=== PATIENT | female | born 1940 | race Caucasian/White ===

== ENCOUNTER → 2016-09-21 | Outpatient (CLI) | payer OTHER, BC ==
[~2016-09-21] MED LIST: BIOT1TAB5 PO; CHOL100010 PO; DILT120T8 PO; FEXO1TAB49 PO; KETO0.0216 OP; LSN10 PO; MONT1TAB3 PO; MULTCAP98 PO; PRM/45 PO; SERT50TA PO
[2016-09-21 08:28] LABS: HEMATOCRIT 40.4 % (37-47); MEAN CELL VOLUME 90.8 fL (80-100); MEAN CORPUSCULAR HEMOGLOBIN 30.3 pg (25-34); MEAN CORPUSCULAR HGB CONC 33.4 g/dl (32-36); MEAN PLATELET VOLUME 10.5 fL (7.4-10.4); PLATELET COUNT 320 K/uL (130-400); RED BLOOD COUNT 4.45 M/uL (4.2-5.4); WHITE BLOOD COUNT 6.32 K/uL (4.8-10.8)
[2016-09-21 08:35] LABS: BLOOD UREA NITROGEN 13 mg/dl (7-18); BUN/CREATININE RATIO 15.1 (10-20); CALCIUM 8.7 mg/dl (8.5-10.1); CARBON DIOXIDE 24 mmol/L (21-32); CHLORIDE 105 mmol/L (98-107); CREATININE 0.85 mg/dl (0.60-1.20); GLUCOSE 97 mg/dl (70-99); POTASSIUM 4.2 mmol/L (3.5-5.1); SODIUM 140 mmol/L (136-145)
== END ==
LOC: C.LABFOXMH 08:16
PROVIDERS: ATTEND Internal Medicine
DX: I10 Essential (primary) hypertension (principal)

== ENCOUNTER → 2017-04-30 | Outpatient (CLI) | payer OTHER, BC ==
--- NOTE | 2017-04-30 15:52 | MAMMOGRAPHY REPORT ---
BILATERAL DIGITAL SCREENING MAMMOGRAM WITH CAD: 04/30/2017 CLINICAL HISTORY: Routine screening. Patient has no complaints. TECHNIQUE: Bilateral CC and MLO views were obtained. Current study was also evaluated with a Compute r Aided Detection (CAD) system. COMPARISON: Comparison is made to exams dated: 04/17/2016 mammogram, 04/12/2015 mammogram, 04/06/2014 m ammogram, 04/04/2013 mammogram, 03/29/2012 mammogram, and 03/29/2011 mammogram - [facility] enter. BREAST COMPOSITION: There are scattered areas of fibroglandular density in both breasts. FINDINGS: The parenchymal pattern is unchanged. No developing mass, architectural distortion or clus ter of suspicious microcalcifications is seen in either breast. IMPRESSION: ACR BI-RADS CATEGORY 2: BENIGN There is no mammographic evidence of malignancy. A 1 year screening mammogram is recommended. The pa tient will receive written notification of the results. Approximately 10% of breast cancers are not detected with mammography. A negative mammographic report should not delay biopsy if a clinically suggestive mass is present. Babita Jaime M.D. ay/:04/30/2017 15:06:50 Weatherization Specialist: Gloria CAMERON(Angela)(Stephanie)(BD), [facility] letter sent: Normal 1/2 BI-RADS Code: ACR BI-RADS Category 2: Benign
== END ==
LOC: C.MAMM 11:02
PROVIDERS: ATTEND Internal Medicine
DX: Z12.31 Encounter for screening mammogram for malignant neoplasm of breast (principal)

== ENCOUNTER 2024-10-21 10:37 | Observation (INO) ==
--- NOTE | 2024-09-24 14:26 | PAT Medication Instructions ---
Medication Instructions Date of Service September 24, 2024 Home Medications conjugated estrogens 0.45 mg tablet (Premarin) 0.45 mg PO QAM diltiazem HCl 180 mg capsule,extended release 24 hr 180 mg PO QAM fexofenadine 180 mg tablet (Selene Allergy) 180 mg PO QAM levothyroxine 25 mcg tablet (Synthroid) 25 mcg PO QAM spironolactone 25 mg tablet 25 mg PO QAM acetaminophen 650 mg tablet 650 mg PO QAM candesartan 32 mg tablet 32 mg PO QAM cholecalciferol (vitamin D3) 50 mcg (2,000 unit) tablet (Vitamin D3) 50 mcg PO QAM desonide 0.05 % lotion 1 applic topical DAILY sertraline 50 mg tablet 75 mg PO QAM vitamin A-vitamin C-vit E-min tablet 1 tab PO QAM ASK your prescriber and surgeon conjugated estrogens 0.45 mg tablet (Premarin) 0.45 mg PO QAM STOP taking 2 weeks before surgery vitamin A-vitamin C-vit E-min tablet 1 tab PO QAM STOP taking 24 hours before surgery desonide 0.05 % lotion 1 applic topical DAILY DO NOT take the morning of surgery fexofenadine 180 mg tablet (Selene Allergy) 180 mg PO QAM spironolactone 25 mg tablet 25 mg PO QAM candesartan 32 mg tablet 32 mg PO QAM cholecalciferol (vitamin D3) 50 mcg (2,000 unit) tablet (Vitamin D3) 50 mcg PO QAM Take morning of surgery With a small sip of water, OTHERWISE NOTHING TO EAT OR DRINK AFTER MIDNIGHT: diltiazem HCl 180 mg capsule,extended release 24 hr 180 mg PO QAM levothyroxine 25 mcg tablet (Synthroid) 25 mcg PO QAM acetaminophen 650 mg tablet 650 mg PO QAM sertraline 50 mg tablet 75 mg PO QAM Other Notes If you have any questions please call us at [phone] or [phone] or [phone] or [phone]
--- NOTE | 2024-10-10 14:09 | Anesthesiology Consultation ---
Date of Service October 10, 2024 Assessment & Plan (1) Encounter for pre-operative examination: - will request most recent note from Dr. Laura and then will discuss with anesthesiologist if anything additional is needed. - Outpatient joint assessment: Patient is currently scheduled for inpatient pathway. If re-evaluated and patient/surgeon requests outpatient pathway, patient is not a candidate for outpatient joint program from anesthesia standpoint. Chart Review Chart Review: Pending: Refer to Additional Notes / Consult section and Patient seen in Pre Admission Testing Teaching & Discussion Pre-Anesthesia Teaching/Discussion Notes: Instructed NPO after midnight before surgery, except medications with 15 cc of water. Medication instructions provided according to the PAT guidelines. History Surgery Operation Date: 10/21/24 08:50 Proposed Procedures p Right Total Knee Arthroplasty - Ramakrishna Edge MD Height/Weight Height: 5 ft 3 in Weight: 72.5 kg Allergies Allergy/AdvReac Type Severity Reaction Status Date / Time latex Allergy Intermediate Itching Verified 09/24/24 13:14 pollen extracts Allergy Mild Itching/Watery Verified 09/24/24 13:14 Eyes, Congestion Medications Home Medications Medication Instructions Recorded Confirmed Last Taken conjugated estrogens 0.45 mg 0.45 mg PO QAM 10/02/22 09/24/24 Unknown tablet (Premarin) diltiazem HCl 180 mg 180 mg PO QAM 10/02/22 09/24/24 Unknown capsule,extended release 24 hr fexofenadine 180 mg tablet 180 mg PO QAM 10/02/22 09/24/24 Unknown (Selene Allergy) levothyroxine 25 mcg tablet 25 mcg PO QAM 10/02/22 09/24/24 Unknown (Synthroid) spironolactone 25 mg tablet 25 mg PO QAM 10/02/22 09/24/24 Unknown acetaminophen 650 mg tablet 650 mg PO QAM 09/24/24 09/24/24 Unknown candesartan 32 mg tablet 32 mg PO QAM 09/24/24 09/24/24 Unknown cholecalciferol (vitamin D3) 50 50 mcg PO QAM 09/24/24 09/24/24 Unknown mcg (2,000 unit) tablet (Vitamin D3) desonide 0.05 % lotion 1 applic topical DAILY 09/24/24 09/24/24 Unknown sertraline 50 mg tablet 75 mg PO QAM 09/24/24 09/24/24 Unknown vitamin A-vitamin C-vit E-min 1 tab PO QAM 09/24/24 09/24/24 Unknown tablet Past Medical History Medical History (Updated 10/10/24 @ 14:16 by Renetta Buitrago PA-C) CAD (coronary artery disease) No stents - no longer follows with Cardio / PCP [facility] monitors Hearing loss Bilateral Hearing Aids HTN (hypertension) controlled, stable per pt Hx of non-ST elevation myocardial infarction (NSTEMI) (~2005) Hypothyroidism Osteoarthritis PONV (postoperative nausea and vomiting) denies needing scop patch Prediabetes Hgb A1C 6.3 on 09/01/24 Patient denies h/o stroke, seizures, heart failure, blood clots/DVTs or blood transfusions. Exercise / Class Metabolic Activity III < 4 Walking/Shop/Light housework (denies chest discomfort or shortness of breath with usual activities) Past Surgical History Surgical History (Updated 10/10/24 @ 14:18 by Renetta Buitrago PA-C) History of bilateral oophorectomy (~1999) Hx of angioplasty 2005 - [facility] [place] - no longer follows with Cardio / PCP [facility] monitors Hx of bilateral cataract extraction Hx of cholecystectomy (1995) Hx of colonoscopy 10/02/24 Hx of hysterectomy (~1978) Past Anesthesia History No Hx of Anesthesia Complications and No Family Hx of Anesthesia Complications History of PONV No Hx of Motion Sickness and History of PONV (denies needing scop patch) Social History Smoking Status: Never smoker Do You Dip or Chew Tobacco: No Hx Alcohol Use: Yes alcohol intake frequency: holidays/special occasions only Hx Substance Use: No substance use type: does not use Review of Systems Occasional snoring, denies witnessed apneas. Patient denies chest pain, shortness of breath, dyspnea on exertion, reflux, fever, chills, cough, wheezing, or palpitations. Physical Exam Vital Signs Vitals BP 121/64 P 68 TEMP 98.5 SP02 98% on RA RESP 19 Physical Patient resting comfortably in chair in no acute distress, alert and oriented, responding appropriately throughout visit Full cervical extension range of motion without pain TMD < 3 finger breadths Mallampati Score 2 Dentition: four implants; denies chipped or loose teeth, caps/crowns, or bridges Lungs: normal respiratory effort. Good air movement, clear throughout to auscultation, no adventitious breath sounds Cardiac: regular rate and rhythm, no murmurs noted Carotid arteries: negative bruit bilat Lab Results Anesthesia Preop Results Results Anesthesia Widget: WBC 7.05 K/ul (4.8-10.8) 10/01/24 Hgb 12.7 g/dl (12.0-16.0) 10/01/24 Hct 39.6 % (37.0-47.0) 10/01/24 Plt 272 K/uL (130-400) 10/01/24 Na 133 mmol/L (136-145) L 10/10/24 K 4.4 mmol/L (3.5-5.1) 10/10/24 Cl 105 mmol/L (98-107) 10/10/24 CO2 25 mmol/L (21-32) 10/10/24 BUN 29 mg/dl (6-23) H 10/10/24 Creat 0.94 mg/dl (0.6-1.2) 10/10/24 Glucose Level 114 mg/dl (70-99(Fasting)) H 10/10/24 PT 10.4 Seconds (9.0-12.0) 10/10/24 PTT 26 Seconds (21-31) 10/10/24 INR 1.0 (0.9-1.1) 10/10/24 TSH 2.790 uIu/ml (0.300-4.500) 09/01/24 HA1c 6.3 % (4.5-5.6) H 09/01/24 SARS-CoV-2 RNA (RT-PCR) Negative (Negative) 09/30/24 Blood Type O Negative 10/10/24 Antibody Screen NEGATIVE 10/10/24 Testing Electrocardiogram Date: 10/10/24 NSR, rate 63 bpm Left axis deviation Possible inferior infarct, age undetermined Chest X-Ray Date: 10/10/24 No acute cardiopulmonary disease.
[~2024-10-21 10:37] MED LIST changes: -BIOT1TAB5 PO; +BUPIVACAINE 0.5 % 5 MG/1 ML PF 10ML VIAL ONE; -CHOL100010 PO; -DILT120T8 PO; -FEXO1TAB49 PO; -KETO0.0216 OP; -LSN10 PO; -MONT1TAB3 PO; -MULTCAP98 PO; -PRM/45 PO; +ROPIVACAINE 0.5% 5 MG/ML 30 ML VIAL ONE; -SERT50TA PO
--- NOTE | 2024-10-21 11:10 | History & Physical Bridge Note ---
Date of Service October 21, 2024 History & Physical Bridge Note I have examined the patient, reviewed the History & Physical and in the interval since the performance of the History & Physical I have noted the following changes of clinical significance: no changes noted
[2024-10-21] MEDS: LR 60ML/HR IV SCH (11:39)
[2024-10-21] MEDS: METOCLOPRAMIDE HCL 10 MG TABLET PO SCH (11:40)
[2024-10-21] MEDS: LR 500ML BOLUS, THEN 15ML/HR IV SCH (11:40)
[2024-10-21] MEDS: CeleBREX 200 MG CAP PO SCH (11:40)
[2024-10-21] MEDS: FAMOTIDINE 20 MG TAB PO SCH (11:40)
[2024-10-21] MEDS: ACETAMINOPHEN 500 MG TAB PO SCH ×2 (11:40→21:46)
[2024-10-21] MEDS: dexAMETHasone**PF** 10 MG/ML VIAL IV SCH (11:41)
[2024-10-21] MEDS ORDERED: fentaNYL citrate PF 100 MCG/2 ML VIAL ONE (12:31)
[2024-10-21] MEDS ORDERED: MIDAZOLAM HCL 1 MG/ML 2ML VIAL ONE (12:31)
[2024-10-21] MEDS ORDERED: PROPOFOL IV EMULSION 10 MG/ML 20 ML VIAL IV ONE (12:34)
[2024-10-21] MEDS: ceFAZolin 2000MG 2,000 MG/15 ML SYR IV SCH (12:58)
[2024-10-21] MEDS ORDERED: LIDOCAINE 2% 2 ML VIAL/AMP(20MG/ML) INFIL ONE (13:07)
[2024-10-21] MEDS ORDERED: ePHEDrine sulfate 50 MG/ML AMP ONE (13:08)
[2024-10-21] MEDS: ORTHO JOINT ANESTHETIC ONE (13:29)
[2024-10-21] MEDS: TRANEXAMIC ACID 1,000 MG **IV Intra-op IV SCH (13:43)
[2024-10-21] MEDS: ROPIV 0.5% 246mg, Ketorolac 30mg, EPINEPHrine 0.5mg in NSS INFIL SCH (13:44)
[2024-10-21] MEDS ORDERED: ePHEDrine sulfate 50 MG/ML AMP IV PRN (13:46)
[2024-10-21] MEDS ORDERED: PROMETHAZINE HCL 6.25 MG in SODIUM CHLORIDE 0.9% 50 ML IV PRN (13:46)
[2024-10-21] MEDS ORDERED: ONDANSETRON INJ 2 MG/ML 2 ML VIAL IV PRN ×2 (13:46→16:06)
[2024-10-21] MEDS ORDERED: fentaNYL citrate PF 100 MCG/2 ML VIAL IV PRN (13:46)
[2024-10-21] MEDS ORDERED: ATROPINE SULFATE 0.1 MG/ML 10ML SYR IV PRN (13:46)
[2024-10-21] MEDS ORDERED: HYDROmorphone INJ 2 MG/ML SYR/VIAL IV PRN (13:46)
--- NOTE | 2024-10-21 14:43 | Operative Report ---
PG Post Operative Report Pre & Post Diagnosis Operation Date: 10/21/24 12:30 Pre-Op Diagnosis: Right Knee Osteoarthritis Post-Op Diagnosis: Right Knee Osteoarthritis I identified the patient and participated in the time-out.: Yes Procedure Operation Date: 10/21/24 12:30 Actual Procedures p Right Total Knee Arthroplasty(Right) - Ramakrishna Edge MD Surgeon Ramakrishna Edge MD Roll Table Operator MONSTER Moeller Estimated Blood Loss 50 Findings Consistent with Post-Op Diagnosis Specimens Right knee sent for pathology. Anesthesia Type Spinal MAC Complications none Disposition Accompanied Patient To Recovery: No Indications Patient is an 9-year-old female whose had a several year history of increasing right knee pain discomfort deformity. She been through extensive conservative treatment which became less successful over time. She became more debilitated by her pain and dysfunction. That she discussed this with her primary care doctor and now she elected proceed with total knee arthroplasty. Description of Procedure Operative implants consist of: 1. Biomet Vanguard size 62.5 right posterior stabilized femoral component. 2. Biomet size 63 tibial tray. 3. 10 mm posterior stabilized polyethylene insert. 4. 28 x 8 all poly patella. The patient was taken the op room, identified, placed on the operating table in the supine position. All conductors were appropriately padded. IV antibiotics provided by the anesthesia team. A spinal anesthetic and adductor canal block had been provided in the holding area. A Hernandez catheter was placed in sterile fashion. Right Tetrick was then placed. Right lower extremity was then prepped and draped in usual sterile fashion. The right leg was elevated and exsanguinated with use of an Esmarch and a turn was placed at 300 mmHg. An anterior approach to the right knee was then performed to longitudinal incision centered over the patella. Sharp dissection was got through subcutaneous tissue down the extensor mechanism. A medial par apatellar arthrotomy incision was made. Some subperiosteal dissection was carried out medially. The fat pad was dissected from Neath patella tendon. Lateral patellofemoral ligament was released. Patella subluxate laterally knee was flexed. The osteophytes taken off distal femur. The ACL and PCL were then released and the distal femur and the tibia subluxated anteriorly. The external tibial alignment jig was then placed on the anterior face the tibia and adjusted 12 mm medially. The proximal tibial cut was made remove that 3 to 4 mm of bone from the medial side. Tibia sized at a size 63. Tissue was then drawn to the femur. The distal femur tendon with a sharp drill. Intramedullary canal was suction. A right 5 degree valgus cutting guide was placed. This femoral cutting block w as pinned in place. This femoral cut was made to take an additional 3 mm of bone off distal femur. The knee was brought down to extension. I did release the IT band or equalize extension gap. The knee was flexed. The the femur was then sized to a size 62.5. The AP cutting block was pinned parallel to the epicondylar axis which was 4 degrees of external rotation. The anterior cut, anterior chamfer, posterior cut, posterior chamfer cuts were made through the box cutting guide was placed and just slight lateral box cut was made. The knee was flexed. The remnants of the medial and lateral menisci were excised. The osteophytes taken off the posterior aspect the femur. A trial femoral component was placed. Tibial tray was pinned Soco external rotation and the drill and stem point to use great defect in proximal tibia for the tibial tray. Knee was then trialed and the 10 mm insert fit most appropriately. Attention drawn the patella. The patella was cleaned of all soft tissues. Patella thickness measured 21 mm in thickness was cut down to 13. Sized to a size 28 patella. The lug holes were drilled for the 28 patella. The lateral osteophytes removed. Patella button was placed. Knee was taken through range of motion patella tracked nicely with no thumbs test. Attention then drawn to placement permanent components. Nupathe all trial components were removed. Bone plug was placed into this femur limit blood loss. A double batch Palacos G cement was mixed. Biomet Vanguard size 62.5 right posterior Byce femoral component, size 63 tibial tray, a 10 mm posterior Byce polyethylene insert, and a 28 x 8 all poly patella then cemented in place. The knee was brought out in full extension till cement hardened. Final cement check was then performed. Pericapsular tissues were injected with total 100 cc of Ortho mix. Patient did receive 1 g tranexamic acid. The tourniquet was then let down for final tourniquet time of 51 minutes. Hemostasis assured use electrocautery. Extensor Meclomen then closed with combination 1 PDS suture #1 Vicryl suture in a [id number] fashion. Extensor Meclomen checked found to be intact with subcutaneous tissues then closed with 2 Dexon suture in a buried interrupted fashion skin was closed skin carine. Leg was then cleaned and dried a sterile dressing with Xeroform, 4 fours, sterile cast padding, Dm bandage were applied. Patient then transferred to the recovery in stable condition. Patient tolerated procedure well and there were no complications. Omar Moeller, my physician curriculum assistant, was present for the entire procedure. His assistance was essential and required for appropriate patient positioning, prepping and draping, surgical exposure, performing the technical details of the operation, placement the implants, closure of the wound, and placement of the sterile bandage. I attest to the content of the Intraoperative Record and any orders documented therein. Any exceptions are noted below.
--- NOTE | 2024-10-21 15:03 | XRay Report ---
XR knee RT 1 or 2V routine CLINICAL HISTORY: Surgical Post Op COMPARISON: None FINDINGS: Right knee prosthesis shows no hardware complication. There is expected soft tissue gas. S kin carine are present. IMPRESSION: Unremarkable postoperative exam. ACT 112: Negative or not required by law. Electronically signed by: Davey Rodriguez M.D. 10/21/2024 3:01 PM
[2024-10-21] MEDS ORDERED: ALUMINUM/MAGNESIUM SUSP 30 ML UDC PO PRN (16:06)
[2024-10-21] MEDS ORDERED: oxyCODONE HCL IR 5 MG TAB (IMMEDIATE RELEASE) PO PRN (16:06)
[2024-10-21] MEDS ORDERED: NALOXONE HCL 0.4 MG/1 ML VIAL/CARP IV PRN (16:06)
[2024-10-21] MEDS ORDERED: HYDROmorphone INJ 0.5 MG/0.5 ML SYR IV PRN (16:06)
[2024-10-21] MEDS ORDERED: bisacodyL 10 MG SUPP PR PRN (16:06)
[2024-10-21] MEDS ORDERED: MAGNESIUM HYDROXIDE SUSP 30 ML UDC PO PRN (16:06)
[2024-10-21] MEDS ORDERED: METOCLOPRAMIDE HCL INJ 5 MG/ML 2 ML VIAL IV PRN (16:06)
[2024-10-21] MEDS: ASCORBIC ACID 500 MG TAB PO SCH (16:51)
[2024-10-21] MEDS: KETOROLAC TROMETHAMINE 15 MG/ML VIAL IV SCH (16:53)
[2024-10-21] MEDS ORDERED: SENNA 8.6 MG TAB PO SCH (21:00)
[2024-10-21] MEDS: TRANEXAMIC ACID / 0.7% NACL 1,000 MG/100 ML BAG IV SCH (21:46)
[2024-10-21] MEDS: SENNA 8.6 MG TAB PO SCH (21:46)
[2024-10-21] MEDS: DOCUSATE SODIUM 100 MG CAP PO SCH (21:46)
[2024-10-21] MEDS: ceFAZolin 1000MG 1,000 MG/7.5 ML SYR IV SCH (21:46)
[2024-10-21] MEDS: ASPIRIN 81 MG ECTAB PO SCH (21:47)
[2024-10-22] MEDS: LEVOTHYROXINE SODIUM 25 MCG TABLET PO SCH (05:47)
[2024-10-22] MEDS: TRIAMCINOLONE ACET 0.025% CR 15 GM TUBE TOP SCH (06:45)
[2024-10-22 07:22] LABS: Hematocrit (blood only) 30.6 % (37.0-47.0); Hemoglobin 10.1 g/dl (12.0-16.0); Mean Corpuscular Hemoglobin 29.8 pg (25.0-34.0); Mean Corpuscular Volume 90.3 fL (80.0-100.0); Mean Platelet Volume 10.1 fL (9.4-12.4); Platelet Count 280 K/uL (130-400); RDW Coefficient of Variation 12.1 % (11.5-14.5); RDW Standard Deviation 39.8 fL (36.4-46.3); Red Blood Count 3.39 M/uL (4.20-5.40); White Blood Count 13.63 K/ul (4.8-10.8)
[2024-10-22 07:43] LABS: BUN Creatinine Ratio 26.5 (10-20); Creatinine Clr Calc Pharmacy 35.3 ml/min; Potassium 4.7 mmol/L (3.5-5.1)
[2024-10-22] MEDS: SPIRONOLACTONE 25 MG TAB PO SCH (08:06)
[2024-10-22] MEDS: LOSARTAN POTASSIUM 50 MG TAB PO SCH (08:06)
[2024-10-22] MEDS: SERTRALINE HCL 50 MG TABLET PO SCH (08:08)
[2024-10-22] MEDS: MULTIVITAMIN TAB PO SCH (08:08)
[2024-10-22] MEDS: CEROVITE ADV FORMULA TAB PO SCH (08:08)
[2024-10-22] MEDS: FEXOFENADINE HCL 180 MG TAB PO SCH (08:08)
[2024-10-22] MEDS: CHOLECALCIFEROL 25 MCG (1000 UNITS) TAB PO SCH (08:08)
[2024-10-22] MEDS: dilTIAZem HCL 180 MG CAPCR PO SCH (08:08)
[2024-10-22] MEDS: dexAMETHasone 10 MG in SYRINGE 0 ML IV SCH (08:14)
--- NOTE | 2024-10-22 11:38 | Orthopedic Progress Note ---
Date of Service October 22, 2024 Assessment & Plan (1) Status post total right knee replacement: (2) Aftercare following right knee joint replacement surgery: Plan 83-year-old female POD# 1 s/p right total knee replacement, doing well overall. Pain is well-controlled. Medically stable. Postop x-rays well-appearing. She is neurologically intact. Plan: 1. DVT prophylaxis w/ TEDs, SCDs, ASA 81 mg BID. 2. PT/OT as tolerated. WBAT on the R LE. Encourage heel slides, SLR, full knee extension w/ quad sets. 3. Pain control doing well with current pain regimen. 4. Dressing change POD#2 per discharge instructions. 5. Disposition - D/C to [facility] once cleared by PT/OT. 6. F/u 2 weeks post-op w/ orthopedics (Dr. Edge's team), or as previously scheduled, for first post-op visit. Subjective Patient is POD# 1 s/p right total knee arthroplasty by Dr. Edge on 10/22/23. Patient says her pain is well-controlled this morning. Denies CP, SOB, N/V, R LE paresthesia. She resides at [facility], and plans to transition over to the [facility]. Patient says that she will be ready for discharge today. Review of Systems All systems reviewed & are unremarkable except as noted in HPI & below. Physical Exam GENERAL: AA&Ox3, NAD. Pleasant, affect is calm. Sitting in bedside chair and appears comfortable. RESPIRATORY: Normal respiratory effort with no signs of distress. CHEST/AXILLA: Chest movement symmetrical. No deformities noted. CARDIOVASCULAR: No edema noted. SKIN: [place], warm and dry. MS/EXTREMITY: Knee dressing & SHY wrap c/d/i. BRITNEY hose donned. + ankle dorsi/plantarflexion. NVI distally. Calf soft/NT. PT/DP pulses intact, 2+. Results & Data Results & Data Laboratory Results . Laboratory Results - last 24 hr 10/22/24 06:41 WBC 13.63 H RBC 3.39 L Hgb 10.1 L Hct 30.6 L MCV 90.3 MCH 29.8 MCHC 33.0 RDW Std Deviation 39.8 RDW Coeff of Ilsa 12.1 Plt Count 280 MPV 10.1 Sodium 134 L Potassium 4.7 Chloride 107 Carbon Dioxide 19 L Anion Gap 8 BUN 31 H Creatinine 1.17 Est Cr Clr Drug Dosing 35.3 eGFR 46.59 BUN/Creatinine Ratio 26.5 H Glucose 170 H Calcium 9.0 Diagnostic Findings . Knee X-Ray 10/21/24 14:40 XR knee RT 1 or 2V routine CLINICAL HISTORY: Surgical Post Op COMPARISON: None FINDINGS: Right knee prosthesis shows no hardware complication. There is expected soft tissue gas. Skin carine are present. IMPRESSION: Unremarkable postoperative exam. ACT 112: Negative or not required by law. Electronically signed by: Davey Rodriguez M.D. 10/21/2024 3:01 PM PG Care Time/CCT Total # of Minutes Spent Total Time Spent with Patient: Total time spent is greater than 50% in coordination of care (as documented) at patient's floor/unit and/or counseling patient: [place] [address] SUB INP/OBS CARE 2/35MIN Patient Type Established History Expanded Problem Focused Exam Expanded Problem Focused Medical Decision Making Low Complexity Diagnoses Status post total right knee replacement Z96.651 Aftercare following right knee joint replacement surgery Z47.1; Z96.651
--- NOTE | 2024-10-22 12:14 | Discharge Summary ---
Date of Service October 22, 2024 Admission HPI (Per Admitting) The patient is an 83-year-old female who lives in [facility] who now presents for surgical treatment of her right knee. She has got a long history of right knee pain and discomfort that has gradually gotten worse overtime. She has been followed by [facility] and treated for the past 2 years or so. The shots have become less successful. She is having more trouble getting around. She would like to have her right knee replaced. She did talk to Dr. Laura about this and they have decided the best procedure is knee replacement. Admission Exam (Per Admitting) Gen: Physical examination shows a pleasant middle-aged elderly female. HEENT: Benign. Neck: Supple. No lymphadenopathy. Lungs: Clear to auscultation. Heart: Regular rate and rhythm. Abdomen: Soft, nontender, and nondistended. Extremities: Grossly neurovascularly intact except as follows: Examination of the right knee reveals the patient ambulates independently. She has got valgus alignment to her knee. It is increased with weightbearing. Her range of motion is about 10 to 15 degrees short of full extension to about 120 degrees of flexion. No pain with hip motion. XR Exam: X-rays of the right knee from previously reviewed. It shows moderately advanced right knee lateral and patellofemoral compartment arthritis. Diffuse osteopenia. Principal Diagnosis Same as "Discharge Diagnosis" noted below under Discharge Instructions. Discharge Exam GENERAL: AA&Ox3, NAD. Pleasant, affect is calm. Sitting in bedside chair and appears comfortable. RESPIRATORY: Normal respiratory effort with no signs of distress. CHEST/AXILLA: Chest movement symmetrical. No deformities noted. CARDIOVASCULAR: No edema noted. SKIN: [place], warm and dry. MS/EXTREMITY: Knee dressing & SHY wrap c/d/i. BRITNEY hose donned. + ankle dorsi/plantarflexion. NVI distally. Calf soft/NT. PT/DP pulses intact, 2+. Discharge Data Procedures Performed Operation Date: 10/21/24 12:30 Actual Procedures p Right Total Knee Arthroplasty(Right) - Ramakrishna Edge MD Ordered Studies 10/21/24 05:00 US - OR guided needle placemen Routine Hospital Course (1) Aftercare following right knee joint replacement surgery: (2) Status post total right knee replacement: Plan On October 21, 2024 Danisha arrived at [facility] operating room and underwent a right total knee replacement without complications. Patient had an adductor canal block and spinal anesthetic for the procedure. Postoperatively, patient was transferred to the general orthopedic floor in stable condition and eventually started onto aspirin 81 mg twice daily for DVT prophylaxis as appropriate. Patient's hospital course was uneventful. On postoperative day #1, patient's vital signs were stable and pain was well- controlled. Patient was able to participate well with physical therapy, safely performing the necessary ambulation and range of motion exercises and properly demonstrating ADL tasks. Patient was then discharged to [facility], with [facility] and therapy services to begin. Patient will follow-up with orthopedics in 2 to 3 weeks for postoperative care. PG Care Time/CCT Total # of Minutes Spent Total Time Spent with Patient: Total time spent is greater than 50% in coordination of care (as documented) at patient's floor/unit and/or counseling patient: Discharge Plan Discharge Items Patient Disposition: [facility] Reason For Visit: Right Knee Osteoarthritis Discharge Diagnosis: Right KNee Replacement Activity: Per Instructions section Weightbearing: Full weightbearing Non-emergency contact: Surgeon Call non-emergency contact if: you have any medication questions Follow-up/Referrals: Sanchez Dsouza [Primary Care Provider] - Ramakrishna Edge MD [Physician] - (as scheduled on 11/06/24 @ 11:20) Diet: Regular Addtl Attending Provider Instructions: ACTIVITY RECOMMENDATIONS: Diet: * You may resume previous diet. Physical Therapy: * You will go to physical therapy three times each week for four to six weeks after your surgery in order to regain your knee range of motion and to retrain your knee to work properly. * It is just as important to make sure you are getting your knee perfectly straight as it is to regain your knee bend. * Taking a pain pill an hour before therapy can help you have a more productive and comfortable therapy session. Home Exercise: * You were shown a series of exercises (heel props, heel slides, etc.) in the hospital. Do these exercises three to four times each day including the exercises you were shown in physical therapy. Walking: * Get up and walk several times each day. For the first four weeks, try not to stand or walk for more than one hour at a time. If you do stand or walk for more than one hour, you will not hurt anything, but your knee and leg will likely swell. * As you feel comfortable, you may change from the walker or crutches to a cane and then to independent walking. MEDICATIONS: New Medicine: * You will likely be taking one or more of these medications: 1. Oxycodone - A quick and shorter-acting pain medication. Take one to two tablets every six hours to lessen your pain. 2. Aspirin - Thins your blood to lessen the chance of forming a blood clot. * The most common side effects of pain medicine and iron are nausea and constipation. If nausea or constipation is too much of a problem or if you have any questions about your new medicines or doses, call [facility] at . We will try to help you manage these issues. "VERY IMPORTANT TO READ AND REVIEW" Pain: * The immediate post-operative period after knee replacement surgery is often quite painful. * You are given a prescription for pain medicine. You should take it, as directed, when you need it, especially before physical therapy and before going to bed. Pain that interferes with sleep is very common and can last several months. * You will likely need pain medicine for the first four to six weeks. It will not stop all of the pain. The pain will lessen and as you feel better, you may change to milder pain medicine such as Tylenol. * The most common side effects of pain medicine are nausea and constipation, so don't take more than you need. SPECIAL CARE INSTRUCTIONS: TEDs/Elastic Stockings: * The white elastic stockings help limit swelling and prevent blood clots from forming in your legs. The more you wear them, the more they work. * Wear them for six weeks after knee replacement surgery and four weeks after partial knee replacement. Incision Site Care: * Remove dressing postoperative day 2 and then shower. Keep direct shower pressure off the incision site. * After showering, cover carine with dry gauze and change daily or more frequently if the dressing is getting saturated with drainage. * Use the BRITNEY stockings to hold dressing in place. DO NOT apply tape on the skin. * May completely stop using bandage if wound is dry and no drainage * Ernul are removed between 2 and 3 weeks post-op. If your follow-up appointment is made before 2 weeks, please have your appointment re- scheduled. It is too early to remove the carine. Prevention of Infection: * Take antibiotics one hour before any dental cleaning, dental work, urological procedure, gastrointestinal procedure or any invasive surgery in order to prevent your new joint from getting infected. * You may get the antibiotics from the doctor performing the procedure or you may call our office at [phone] before and we will call in a prescription to the pharmacy of your choice. Things to Watch For: * Drainage from the incision site that occurs more than one week after your surgery. * Severely increased knee/leg pain or swelling. * Increased redness at the incision site. * Fever above 102 degrees Fahrenheit. * Unusual chest pain or shortness of breath. * Unusual pain or burning with urination. Call [facility] at [phone] with any of the above problems or if you have any questions about your medicines or recovery. FOLLOW UP VISIT: Make an appointment to see your doctor for approximately two weeks after surgery for a progress check and staple removal by calling the office at [phone]. Pending Studies at Discharge: No Stand-Alone Forms: My [facility] Skilled Items Patient informed of condition?: Yes DNR: No Discharge Level of Care: Skilled Communicable Disease: No Discharge Prognosis: Improving Lines: None Urinary Catheter: No Medications and DC Order Prescriptions: Continued oxycodone 5 mg tablet 5 mg PO Q6 PRN (Reason: pain) Qty: 40 0RF Rx Instructions: Take as needed for pain ondansetron 4 mg tablet,disintegrating 4 mg PO Q8 PRN (Reason: nausea) Qty: 20 1RF Rx Instructions: Take as needed for nausea ketorolac 10 mg tablet 10 mg PO TID 5 Days Qty: 15 0RF Rx Instructions: Take 3 times per day with food for 5 days to lessen pain and swelling. sennosides [Senokot] 8.6 mg tablet 8.6 mg PO BID 14 Days Qty: 28 0RF Rx Instructions: Take two times a day to prevent/treat constipation acetaminophen [Tylenol Extra Strength] 500 mg tablet 1,000 mg PO TID 30 Days Qty: 180 0RF Rx Instructions: Take 3 times per day to lessen pain. aspirin [Leann Low Dose Aspirin] 81 mg tablet,delayed release (DR/EC) 81 mg PO BID 45 Days Qty: 90 0RF Rx Instructions: Take to prevent blood clots. cefadroxil 500 mg capsule 500 mg PO BID 7 Days Qty: 14 0RF Rx Instructions: Take 1 cap twice a day to prevent infection diltiazem HCl 180 mg capsule,extended release 24hr 180 mg PO QAM Premarin 0.45 mg tablet 0.45 mg PO QAM levothyroxine [Synthroid] 25 mcg tablet 25 mcg PO QAM spironolactone 25 mg tablet 25 mg PO QAM fexofenadine [Selene Allergy] 180 mg tablet 180 mg PO QAM candesartan 32 mg tablet 32 mg PO QAM desonide 0.05 % Lotion 1 applic TOPICAL DAILY sertraline 50 mg tablet 75 mg PO QAM vitamin A-vitamin C-vit E-min Tablet 1 tab PO QAM cholecalciferol (vitamin D3) [Vitamin D3] 50 mcg (2,000 unit) Tablet 50 mcg PO QAM Discontinued acetaminophen 650 mg Tablet 650 mg PO QAM Discharge Orders: Discharge Order (Routine); Ordered 10/22/24 Ordered By: Preston Stover Admission Data Admit Date/Time: 10/21/24 14:40 Attending Provider: Ramakrishna Edge Admit Provider: Ramakrishna Edge Primary Care Provider: Sanchez Dsouza Other Interventions: Discharge Summary Assessment (RN) Last Done: 10/22/24 10:33
== END 2024-10-22 11:18 ==
LOC: 3N 10:37 → ASU 10:37